=== PATIENT | male | born 1960 | race African-American/Black ===

== ENCOUNTER 2024-10-30 18:19 | Emergency (ER) | payer OTHER ==
[2024-10-30 18:39] VITALS: BMI 30.7
[2024-10-30 19:59] LABS: ABSOLUTE IMMATURE GRANULOCYTES 0.01 x10^3/uL (0.0-0.031); BASOPHILS # 0.02 x10^3/uL (0.01-0.08); EOSINOPHIL % 1.1 % (0.8-7.0); EOSINOPHILS # 0.06 x10^3/uL (0.04-0.54); MCHC 33.3 g/dl (32.3-36.5); MEAN CELL VOLUME 86.7 fl (79.0-92.2); MEAN PLT VOLUME 9.5 fl (9.4-12.4); MONOCYTE # 0.38 x10^3/uL (0.30-0.82); MONOCYTE % 6.9 % (5.3-12.2); RDW 12.3 % (12.2-16.4)
[2024-10-30 20:17] LABS: GLUCOSE,RANDOM 185.0 mg/dL (74-106)
[2024-10-30 20:18] LABS: TOT PROT 7.5 g/dl (6.4-8.2)
[2024-10-30 20:19] LABS: CO2 27.0 mmol/L (21-32)
[2024-10-30 20:20] LABS: ALK PHOS 56.0 U/L (40-150)
[2024-10-30 20:23] LABS: CREATININE 1.17 mg/dL (0.55-1.3); SGOT/AST 19.0 U/L (5-34); SGPT/ALT 16.0 U/L (0-55)
[2024-10-30 20:43] LABS: HIV INTERPRETATION NEGATIVE (NEGATIVE)
[2024-10-30 20:44] LABS: HCV DIAGNOSTIC IN-HOUSE W/RFLX NON-REACTIVE (NONREACTIVE)
[2024-10-30] MEDS: LOSARTAN 50MG/HCTZ 12.5MG 1 TAB PO ONE (22:10)
[2024-10-30 22:57] VITALS: BP 186/88; PULSE 72; RESP 20; TEMP 98.6
== END 2024-10-30 22:59 | disposition home or self-care (01) ==
LOC: JER 18:19
DX: I10 Essential (primary) hypertension (principal); R42 Dizziness and giddiness
CPT/HCPCS: 36415; 70450-TC; 71045-TC-FY; 80053; 82962; 84484; 85025; 86803; 87389; 93005; 93010; 99285-25